=== PATIENT | male | born 1995 | race Two or more races ===

== ENCOUNTER → 2024-09-06 | Outpatient (BNVA) | payer SELFPAY | END | disposition home or self-care (01) | PROVIDERS: PCP Nurse Practitioner Primary Care; Referring Provider Nurse Practitioner Primary Care; Visit Provider Nurse Practitioner Primary Care | DX: T22.111A Burn of first degree of right forearm, initial encounter (principal); X08.8XXA Exposure to other specified smoke, fire and flames, initial encounter; Y93.9 Activity, unspecified; Y92.9 Unspecified place or not applicable; Y99.9 Unspecified external cause status; Z48.00 Encounter for change or removal of nonsurgical wound dressing | CPT/HCPCS: 99203 ==